=== PATIENT | male | born 1960 | race Caucasian/White ===

== ENCOUNTER 2020-06-04 16:16 | Emergency (ER) | payer SELFPAY ==
[~2020-06-04] VITALS: Ht 157.5 cm; Wt 54.4 kg
[2020-06-04 16:16] VITALS: BP 102/67
--- NOTE | 2020-06-04 16:29 | NUR ---
SOPHIA GARDNER FOR PREBOOK. PT HAS NO MEDICAL COMPLAINTS AT THIS TIME. PT IS DIABETIC AND HAS NOT TAKEN HIS INSULIN TODAY. FSBS 253 AT THIS TIME
--- NOTE | 2020-06-04 16:34 | NUR ---
PT BEING EVAUATED BY MACIE.
[2020-06-04] MEDS ORDERED: INSULIN REGULAR, HUMAN 100 UNIT/ML VIAL SUBQ ONE (16:40)
[2020-06-04 17:39] VITALS: BP 102/67
--- NOTE | 2020-06-04 17:39 | NUR ---
DISCHARGE INSTRUCTIONS PROVIDED TO OFFICER ADRIEL. PREBOOK FORM AND COPY GIVEN TO OFFICER. BLOOD GLUCOSE PRIOR TO DISCHARGE WAS 211. DR. VANCE MADE AWARE AND OKAY WITH DISCHARGING PATIENT. PT WAS MEDICALLY CLEAR BY DR. VANCE.
== END 2020-06-04 17:39 ==
LOC: MED 16:16
DX: E10.8 Type 1 diabetes mellitus with unspecified complications (principal); Z02.89 Encounter for other administrative examinations
CPT/HCPCS: 96372; 99283; J1815